=== PATIENT | male | born 1975 | race Caucasian/White ===

== ENCOUNTER 2020-03-05 17:02 | Observation (INO) | payer BC, SELFPAY ==
[2020-03-05] VITALS (9 sets, daily range): BP systolic 99–153; BP diastolic 60–87; PULSE 60–89; RESP 16–18; TEMP 36.4–36.8; O2SAT 94–98; BMI 21.7; BMI 21.4
--- NOTE | 2020-03-05 17:07 | HMH.EDGENADL ---
ED Disposition Condition on Discharge: Good - Critical Care Critical Care Time: No <Socrates Keita - Last Filed: 03/05/20 20:03> <Farzad Hagan - Last Filed: 03/05/20 20:56> Clinical Impression: JERRY (acute kidney injury), Elevated troponin, Transaminitis Drug overdose Qualifiers: Encounter type: initial encounter Injury intent: accidental or unintentional Qualified Code(s): T50.901A - Poisoning by unspecified drugs, medicaments and biological substances, accidental (unintentional), initial encounter Disposition: Home, Self-Care Prescriptions: Naloxone HCl [Narcan] 4 mg NS ONCE 1 Days #1 spray Transmission Status: Received by [id number] Referrals: PCP,Sariah [Primary Care Provider] - Attestation: On 03/05/20, the high probability of a clinically significant, sudden or life threatening deterioration of the following system(s) required my full and direct attention, intervention and personal management. The time I documented below is in addition to time spent performing reported procedures but includes the following listed in this critical care notation. Medical Decision Making - Medical Records Medical records reviewed: Yes: I reviewed the patient's medical records. MR Comment: 45-year-old male presents emergency department after being found down by EMS after possible opioid overdose. He arrives to the ED hemodynamically stable, with reassuring vital signs, and looks well on exam. He is not irritable on arrival, has no pain complaints. Respiratory rate is normal and he is answering all questions appropriately, alert and oriented. 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 I do not feel that this needs further evaluation at this time. He has only needed 1 dose of Narcan. Will work-up, assess for needed repeat doses of Narcan and reassess the patient. On reassessment, patient remians stable. Denies chest pain, LBBB on ECG, no prior ECG or workup here to compare this to, no past medical records. Troponin elevated, no chest pain. Creatning and LFT's also elevated. Likely due to overdose and hypoxia. CK checked, no concern for rhabdo at this time. Given that patient is pain free and wants to go home, will continue fluids both IV and PO and reassess with repeat CMP, troponin and ECG and reassess. - Prabhu Inquiry Pt receiving controlled substance: No - Lab Data Result diagrams: 03/05/20 17:05 03/05/20 17:05 <Socrates Keita - Last Filed: 03/05/20 20:03> - Medical Records MR Comment: Patient handed off by Dr. Keita. Patient troponin second was elevated, repeat EKG still demonstrated left bundle branch block, scarbosa criteria negative. 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 - Lab Data Result diagrams: 03/05/20 17:05 03/05/20 20:04 <Farzad Hagan - Last Filed: 03/05/20 20:56> Vital Signs: 03/05/20 17:03 03/05/20 18:11 03/05/20 19:01 Temperature 97.9 F Temperature Source Oral Pulse Rate [Right Radial] 89 65 65 Respiratory Rate 17 Blood Pressure [Right Arm] 112/65 101/60 L 99/62 L Blood Pressure Mean [Right Arm] 80 73 74 Blood Pressure Source [Right Arm] Automatic Cuff Automatic Cuff Blood Pressure Position [Right Arm] Sitting Sitting 02 Sat by Pulse Oximetry 95 94 L 95 Oxygen Delivery Method Room Air Room Air Room Air 03/05/20 20:34 Temperature Temperature Source Pulse Rate [Right Radial] 66 Respiratory Rate 18 Blood Pressure [Right Arm] 116/70 Blood Pressure Mean [Right Arm] 85 Blood Pressure Source [Right Arm] Blood Pressure Position [Right Arm] 02 Sat by Pulse Oximetry 97 Oxygen Delivery Method - Lab Data Lab Results 03/05/20 17:05: WBC 18.1 H, RBC 4.27 L, Hgb 13.6 L, Hct 39.7 L, MCV 93.0, MCH 31.7 H, MCHC 34.1, RDW 13.9, Plt Count 260, MPV 7.2 L, Neut % (Auto) 91.3 H, Lymph % (Auto) 4.1 L, [place] % (A
--- NOTE | 2020-03-05 17:09 | ECG_ITS ---
APPROVED REPORT Exam: Resting ECG HR:68 bpm ECG Measurements Heart Rate 68 AXES IA 188 P 53 QRSd 166 QRS 30 QT 436 T 99 QTc 463 <Conclusion> Normal sinus rhythm Left bundle branch block Abnormal ECG Electronically signed by : Basil Travis, 03/06/2020 19:51:02
--- NOTE | 2020-03-05 17:18 | PC.NURSE ---
labs drawn from DANIEL. IVFs initiated wide open. Waiting for pt to give urine specimen.
[2020-03-05 17:35] LABS: Basophils % 0.1 % (0.1-2.0); Eosinophils % 0.2 % (0.1-12.0); Hematocrit 39.7 % (42.0-52.0); Hemoglobin 13.6 g/dL (14.1-18.0); Lymphocytes # 0.8 K/mm3 (0.7-4.5); Lymphocytes % 4.1 % (10-50); Mean Corpuscular HGB Conc 34.1 g/dL (31.8-35.4); Mean Corpuscular Hemoglobin 31.7 pg (27.0-31.2); Mean Platelet Volume 7.2 fl (7.4-10.4); Monocytes # 0.8 K/mm3 (0.1-1.0); Monocytes % 4.3 % (1.7-9.3); Neutrophils # 16.6 K/mm3 (1.8-7.8); Neutrophils % 91.3 % (37.0-80.0); Platelet Count 260 K/mm3 (142-424); Red Blood Count 4.27 M/mm3 (4.60-6.20); Red Cell Distribution Width 13.9 % (11.5-17.5); White Blood Count 18.1 K/mm3 (4.8-10.8)
[2020-03-05 17:37] LABS: MANUAL DIFFERENTIAL MANUAL DIFFERENTIAL (MANUAL DIFF)
[2020-03-05 17:41] LABS: Alanine Aminotransferase 130 U/L (12-78); Albumin Level 4.6 g/dl (3.5-5.0); Albumin/Globulin Ratio 1.4 (1.1-1.8); Alkaline Phosphatase 107 U/L (38-126); Anion Gap 17.9 mEq/L (5-15); Aspartate Amino Transferase 217 U/L (17-59); Bilirubin,Total 0.4 mg/dl (0.2-1.3); Blood Urea Nitrogen 17 mg/dl (9-20); Calcium 9.1 mg/dl (8.4-10.2); Carbon Dioxide 29 mmol/L (22.0-30.0); Chloride 97 mmol/L (98-107); Creatinine Clearance Estimated 48 mL/min (50-200); Estimated Glomerular Filt Rate 36 ml/min (>60); GFR (African American) 44 ML/MIN (>60); Globulin 3.3 g/dL (1.3-3.2); Glucose 159 mg/dl (74-100); Potassium 3.9 mmoL/L (3.5-5.1); Sodium 140 mmol/L (136-145); Total Protein,Serum 7.9 g/dl (6.3-8.2)
[2020-03-05 17:44] LABS: Acetaminophen < 10 ug/ml (10-30); Ethyl Alcohol < 10 mg/dl (0-10); Salicylate < 1.0 mg/dL (2.0-20.0)
[2020-03-05 17:47] LABS: Eosinophils % 1 % (0-3); Lymphocytes % 10 % (10-50); Monocytes % 2 % (2-9); Neutrophils % 81 % (42-76); Platelet Estimate Normal; RBC Morphology Normal; Total Cells Counted 100
[2020-03-05 17:52] LABS: Troponin I 0.36 ng/ml (0.00-0.034)
[2020-03-05 18:10] LABS: Creatine Kinase 148 U/L (55-170)
--- NOTE | 2020-03-05 20:00 | ECG_ITS ---
APPROVED REPORT Exam: Resting ECG HR:79 bpm ECG Measurements Heart Rate 79 AXES OK 174 P 38 QRSd 168 QRS 6 QT 432 T 119 QTc 495 <Conclusion> Normal sinus rhythm Possible Left atrial enlargement Left bundle branch block Abnormal ECG Electronically signed by : Basil Travis, 03/06/2020 19:51:49
[2020-03-05 20:22] LABS: Alanine Aminotransferase 163 U/L (12-78); Albumin Level 4.1 g/dl (3.5-5.0); Albumin/Globulin Ratio 1.4 (1.1-1.8); Alkaline Phosphatase 111 U/L (38-126); Anion Gap 14.7 mEq/L (5-15); Aspartate Amino Transferase 207 U/L (17-59); Bilirubin,Total 0.4 mg/dl (0.2-1.3); Blood Urea Nitrogen 17 mg/dl (9-20); Calcium 8.5 mg/dl (8.4-10.2); Carbon Dioxide 28 mmol/L (22.0-30.0); Chloride 98 mmol/L (98-107); Creatinine Clearance Estimated 60 mL/min (50-200); Estimated Glomerular Filt Rate 47 ml/min (>60); GFR (African American) 57 ML/MIN (>60); Glucose 105 mg/dl (74-100); Potassium 3.7 mmoL/L (3.5-5.1); Sodium 137 mmol/L (136-145); Total Protein,Serum 7.1 g/dl (6.3-8.2)
[2020-03-05 20:25] LABS: Amphetamine/Metha Screen,Urine Negative ng/ml (<1000); Benzodiazepines Screen,Urine Negative ng/ml (<200)
[2020-03-05 20:26] LABS: Barbiturates Screen,Urine Negative ng/ml (<200); Cannabinoid Screen,Urine Positive ng/ml (<50)
[2020-03-05 20:27] LABS: Cocaine Screen,Urine Negative ng/ml (<300)
[2020-03-05 20:28] LABS: Methadone Screen,Urine Negative ng/ml (<300); Opiate Screen,Urine Positive ng/ml (<300)
[2020-03-05 20:29] LABS: Phencyclidine Screen,Urine Negative ng/ml (<25)
[2020-03-05 20:37] LABS: Troponin I 1.88 ng/ml (0.00-0.034)
--- NOTE | 2020-03-05 20:42 | PC.NURSE ---
speaking with Dr. Pedraza
--- NOTE | 2020-03-05 20:45 | PC.NURSE ---
speaking with Dr. Renee
[2020-03-05 21:20] LABS: Coronavirus 19 IgG Antibody Negative (Negative); Coronavirus 19 IgM Antibody Negative (Negative)
--- NOTE | 2020-03-05 21:49 | PC.NURSE ---
PT ARRIVED TO THE FLOOR VIA W/C FROM ED WITH STAFF AT [id number]
--- NOTE | 2020-03-05 22:15 | PC.NURSE ---
Loxenox injection and fluid bolus to be given tonight.
[2020-03-05 23:52] LABS: Troponin I 2.86 ng/ml (0.00-0.034)
[2020-03-06] VITALS: BP 121/66; PULSE 60; PULSE 73; RESP 16; TEMP 37.2; O2SAT 96
[2020-03-06 04:00] VITALS: BP 136/77; PULSE 60; PULSE 65; RESP 16; TEMP 36.7; O2SAT 99
--- NOTE | 2020-03-06 04:06 | PC.NURSE ---
Alert and oriented x4. Pt rested well this shift with eyes closed. No c/o chest pain. Reports pain to right wrist. Rates pain 8/10 on pain scale. Administered Tylenol per mar x1 thus far. Upon reassessment pt noted resting with eyes closed with no further complaints. PERRLA. Right hand associate [employer] noted with decreased strength due to pt being unable to full extend his wrist. States his wrist has not voluntarily extended since he was found unresponsive in his car yesterday with his wrist under his body. Pt states he is unaware of how long he was unconscious before found by . Pt is able to use/extend digits on right hand. 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 Cap refill < 3 seconds bilateral hands. Tolerates ra well, no c/o soa. Bilateral breath sounds noted clear t/o upon auscultation. Denies cough. Denies N/V/D. Active bowel sounds noted in all 4 quads upon auscultation. Adequate urine output noted. Independently amb to and from bathroom, tolerates well. No edema noted. BBB noted on teletypesetter monitor. remained at bedside t/o shift. NPO since 0000. VSS. Call light within reach. Remains safe with seizure precautions in place. Will continue to monitor.
[2020-03-06 06:00] VITALS: BMI 21.4
[2020-03-06 07:30] LABS: Basophils % 0.3 % (0.1-2.0); Eosinophils # 0.1 K/mm3 (0.0-0.4); Eosinophils % 1.3 % (0.1-12.0); Hematocrit 31.4 % (42.0-52.0); Lymphocytes # 2.2 K/mm3 (0.7-4.5); Lymphocytes % 23.1 % (10-50); Mean Corpuscular HGB Conc 34.6 g/dL (31.8-35.4); Mean Corpuscular Hemoglobin 31.3 pg (27.0-31.2); Mean Corpuscular Volume 90.3 fl (80-94); Mean Platelet Volume 7.7 fl (7.4-10.4); Monocytes # 0.7 K/mm3 (0.1-1.0); Monocytes % 7.7 % (1.7-9.3); Neutrophils # 6.5 K/mm3 (1.8-7.8); Neutrophils % 67.7 % (37.0-80.0); Platelet Count 179 K/mm3 (142-424); Red Blood Count 3.47 M/mm3 (4.60-6.20); Red Cell Distribution Width 14.1 % (11.5-17.5); White Blood Count 9.6 K/mm3 (4.8-10.8)
[2020-03-06 07:34] LABS: Anion Gap 9.5 mEq/L (5-15); Blood Urea Nitrogen 16 mg/dl (9-20); Calcium 8.3 mg/dl (8.4-10.2); Carbon Dioxide 31 mmol/L (22.0-30.0); Chloride 97 mmol/L (98-107); Chol/HDL Ratio 5.5 (1-3.5); Cholesterol 149 mg/dl (140-200); Creatinine Clearance Estimated 73 mL/min (50-200); Estimated Glomerular Filt Rate 60 ml/min (>60); GFR (African American) 72 ML/MIN (>60); Glucose 96 mg/dl (74-100); HDL Cholesterol 27 mg/dl (40-60); Magnesium 2.1 mg/dl (1.6-2.3); Potassium 3.5 mmoL/L (3.5-5.1); Sodium 134 mmol/L (136-145); Triglycerides 103 mg/dl (30-150); VLDL Cholesterol 21 mg/dL (0-40)
[2020-03-06 07:41] LABS: Hemoglobin 10.9 g/dL (14.1-18.0)
[2020-03-06 07:44] LABS: Direct LDL Cholesterol 95.06 mg/dL (100-129)
[2020-03-06 08:00] VITALS: BP 156/83; PULSE 60; PULSE 67; RESP 19; TEMP 36.7; O2SAT 99
--- NOTE | 2020-03-06 09:24 | HMH.HPDC ---
General - General Admission date:: 03/05/20 Discharge date: 03/06/20 *Admission Date: 03/05/20 *Chief complaint: found down by *History of present illness: 45 year old male brought to [facility] ER after being found unresponsive and barely breathing in his car at home by his . She called 911 and a dose of Narcan was given once EMS arrived. Patient became more responsive and respiratory rate increased. He was found to have difficulty moving his left hand. In the ER patient reported taking a percocet 30 and stated it must have been laced with something. Patient states he has been under a lot of stress lately after the unexpected of both his parents in the last few months. He admits to misusing narcotics. [facility] History Medical History: Reports:: Hypertension, Seizures, Valvular Heart Disease (s/p aortic valve replacement) Denies:: Cancer, Diabetes Mellitus Type 1, Diabetes Mellitus Type 2, Internal Pacemaker, MRSA *Have you ever received a pneumonia vaccine?: Yes *Have you received a flu vaccine this season?: No Other Surgeries: Yes: Cardiac Surgery. 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 *Occupational Status:: employed Housing: house Household Members: spouse, children *Travel in the last 8 weeks: None Family Hx:: Coronary Artery Disease, Hypertension, Alcoholism Review of Systems - Constitutional Denies fever(s) - Eyes Denies change in vision - ENT Denies difficulty swallowing - *Cardiovascular Denies chest pain - *Respiratory Denies cough - *Gastrointestinal Denies abdominal pain - *Genitourinary Denies difficulty urinating - *Musculoskeletal Denies muscle cramps - Integumentary/Breasts Denies rash - *Neurologic Reports tingling (and decreased use of right hand), Denies dizziness - Psychiatric Denies thoughts of hurting/killing others Exam Vital signs and Labs for Last 24 Hours: Temp Pulse Resp BP Pulse Ox 98.0 F 67 19 156/83 H 99 03/06/20 08:00 03/06/20 08:00 03/06/20 08:00 03/06/20 08:00 03/06/20 08:00 Laboratory Results - last 24 hr 08/29/20 17:05: WBC 18.1 H, RBC 4.27 L, Hgb 13.6 L, Hct 39.7 L, MCV 93.0, MCH 31.7 H, MCHC 34.1, RDW 13.9, Plt Count 260, MPV 7.2 L, Neut % (Auto) 91.3 H, Lymph % (Auto) 4.1 L, [place] % (Auto) 4.3, Eos % (Auto) 0.2, Baso % (Auto) 0.1, Neut # (Auto) 16.6 H, Lymph # (Auto) 0.8, [place] # (Auto) 0.8, Eos # (Auto) 0.0, Baso # (Auto) 0.0, Total Counted 100, Neutrophils % (Manual) 81 H, Band Neutrophils % 5.0, Lymphocytes % (Manual) 10, Monocytes % (Manual) 2, Eosinophils % (Manual) 1, Metamyelocytes % 1.0, Platelet Estimate Normal, RBC Morphology Normal 03/05/20 17:05: Sodium 140, Potassium 3.9, Chloride 97 L, Carbon Dioxide 29, Anion Gap 17.9 H, BUN 17, Creatinine 2.00 H, Estimated Creat Clear 48, Estimated GFR 36 L, Est GFR ( Amer) 44 L, Glucose 159 H, Calcium 9.1, Total Bilirubin 0.4, AST 217 H, ALT 130 H, Alkaline Phosphatase 107, Troponin I 0.36 H, Total Protein 7.9, Albumin 4.6, Globulin 3.3 H, Albumin/Globulin Ratio 1.4, Salicylates < 1.0 L, Acetaminophen < 10 L 03/05/20 17:05: Plasma/Serum Alcohol < 10 03/05/20 17:05: Total Creatine Kinase 148 03/05/20 17:05: SARS-CoV-2 IgG Ab (Rapid) Negative, SARS-CoV-2 IgM Ab (Rapid) Negative 03/05/20 20:04: Urine Opiates Screen Positive H, Urine Methadone Screen Negative, Ur Barbituates Screen Negative, Ur Phencyclidine Scrn Negative, Ur Amphetamines Screen Negative, U Benzodiazepines Scrn Negative, Urine Cocaine Screen Negative, U Marijuana (THC) Screen Positive H 03/05/20 20:04: Sodium 137, Potassium 3.7, Chloride 98, Carbon Dioxide 28, Anion Gap 14.7, BUN 17, Creatinine 1.60 H, Estimated Creat Clear 60, Estimated GFR 47 L, Est GFR ( Amer) 57 L D, Glu
--- NOTE | 2020-03-06 11:26 | HMH.PHAINT ---
DISCHARGE COUNSELING COMPLETED ON PATIENT. ONLY NEW PRESCRIPTION IS BABY ASPIRIN WHICH CAN BE PICKED UP AT ANY PHARMACY. PATIENT IS TO CONTINUE ALL OTHER HOME MEDICATIONS. PATIENT VERBALIZED UNDERSTANDING AND HAD NO QUESTIONS AT THIS TIME. -RAFAL DEE, JUDYD
--- NOTE | 2020-03-06 17:17 | PC.NURSE ---
PER DR. GRAVES THIS RN WAS TO PHONE PT ENVIRONMENT ARTIST AND PROVIDE INSTRUCTIONS FOR RADIAL PALSY EXERCISES. THIS RN SPOKE WITH LORENA WHOM PROVIDED THIS RN INSTRUCTIONS TO PRINT PROPER EXERCISES FOR PATIENT'S RIGHT WRIST DROP. THIS RN EDUCATED PATIENT ON EACH EXERCISE, PATIENT AND SPOUSE VERBALIZED AN UNDERSTANDING. THIS RN PROVIDED D/C INSTRUCTIONS ON VT AND DRUG OVERDOSE, ALSO INSTUCTIONS TO FOLLOW UP WITH PATIENT'S SCOUT PROFESSIONAL SPORTS, PATIENT AND SPOUSE VERBALIZED AN UNDERSTANDING. THIS RN PROVIDED A LIST OF SUBSTANCE ABUSE CLINICS TO PATIENT AND SPOUSE, WHICH WAS PROVIDED BY [facility]. NO OTHER CONCERNS AT THIS TIME.
== END 2020-03-06 11:30 | disposition home or self-care (01) ==
LOC: ER 20:49 → 2ND 22:21
PROVIDERS: Emergency Medicine; Admitting Provider Family Medicine; Emergency Provider Emergency Medicine; Visit Provider Family Medicine
DX: I21.4 Non-ST elevation (NSTEMI) myocardial infarction (principal); I10 Essential (primary) hypertension; G56.32 Lesion of radial nerve, left upper limb; F11.10 Opioid abuse, uncomplicated
CPT/HCPCS: 36415; 80048; 80053; 80061; 80305; 80329; 82550; 83735; 84484; 85007; 85025; 86328; 93005; 96374; 99285; G0378; J2405

== ENCOUNTER 2020-04-19 09:00 | Outpatient (RCR) | payer BC, SELFPAY ==
--- NOTE | 2020-03-21 08:54 | HMH.OTOPEV ---
OT Inpatient Evaluation Rehab OT Outpatient Eval Start: 03/21/20 08:40 Freq: Status: Active Protocol: Document 03/21/20 08:40 RMALEXIS (Rec: 03/21/20 08:53 [id number] Electronically Signed By Abida Vieyra OT 03/21/20 08:40 Outpatient Therapy Subjective History Subjective History Pt is a 45 year old male who reports to therapy for initial evaluation to right hand/ wrist. Pt reports he had a stroke ~2 weeks ago which has affected his right wrist/hand. However, therapist reviewed ER documentation which revealed patient overdosed in his car and his right arm was pinned underneath him for a long period of time. ER physician reports he has radial nerve palsy. Pt does present with all symptoms of this diagnosis. Pt is able to flex his wrist, but unable to extend or grasp. 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 Elbow is WNL with range of motion and strength. Pt will continue to be seen in order to address right wrist deficits. 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 Strength,Decreased Coordination Symptom Type Numbness,Tingling Symptoms Relieved By Nothing Symptoms Aggravated By Physical Activity Prior Functional Limitations None Current Functional Limitations Reaching,Lifting,Housework, Dressing Symptom Description Constant but Variable Level of pain today (0-10) 2 Pain scale - at its best (0-10) 0 Pain scale - at its worst (0-10) 5 Wrist/Hand Eval Wrist Range of Motion Right Wrist Extension Active Range of Motion ( 0 degrees degrees) Wrist Extension Passive Range of Motion 70 degrees (degrees) Wrist Flexion Active Range of Motion ( 70 degrees degrees) Wrist Radial Deviation Active Range of 0 degrees Motion (degrees) Wrist Ulnar Deviation Active Range of 0 degrees Motion (degrees) Wrist Manual Muscle Testing Right Wrist Extension Strength Grade 1 Trace Wrist Flexion Strength Grade 2+ Poor+ Wrist Radial Deviation S
== END 2020-04-19 09:05 | disposition home or self-care (01) ==
LOC: OT 09:00
PROVIDERS: PCP Family Medicine; Visit Provider Family Medicine
DX: R20.0 Anesthesia of skin (principal)
CPT/HCPCS: 97014; 97110; 97140; 97165; G0283

== ENCOUNTER → 2022-09-24 15:06 | Outpatient (CLI) | payer BC, SELFPAY ==
[2022-09-24 16:34] LABS: Chloride 100 mmol/L (98-107); Sodium 138 mmol/L (136-145)
[2022-09-24 16:37] LABS: Blood Urea Nitrogen 14 mg/dl (9-20); Estimated Glomerular Filt Rate 72 ml/min (>60); GFR (African American) 87 ML/MIN (>60)
[2022-09-24 16:38] LABS: Calcium 8.9 mg/dl (8.4-10.2); Carbon Dioxide 30 mmol/L (22.0-30.0); Glucose 73 mg/dl (74-100)
== END ==
PROVIDERS: PCP Family Medicine; Visit Provider Nurse Practitioner Primary Care
DX: I50.42 Chronic combined systolic (congestive) and diastolic (congestive) heart failure (principal)
CPT/HCPCS: 36415; 80048

== ENCOUNTER 2023-11-12 16:33 | Emergency (ER) | payer OTHER, SELFPAY ==
[2023-11-12 16:35] VITALS: BP 159/87; PULSE 63; RESP 20; TEMP 36.7; O2SAT 99; BMI 19.0
[2023-11-12] MEDS: ACETAMINOPHEN 1,000MG/100ML VIAL 1000 MG IV (17:04)
[2023-11-12] MEDS: KETOROLAC 30MG/ML VIAL 15 MG IV (17:04)
[2023-11-12 17:18] LABS: Basophils # 0.1 K/mm3 (0-0.2); Basophils % 0.5 % (0.1-2.0); Eosinophils # 0.5 K/mm3 (0.0-0.4); Eosinophils % 4.6 % (0.1-12.0); Hematocrit 31.1 % (42.0-52.0); Lymphocytes # 2.7 K/mm3 (0.7-4.5); Lymphocytes % 24.1 % (10-50); Mean Corpuscular HGB Conc 32.2 g/dL (31.8-35.4); Mean Corpuscular Hemoglobin 31.3 pg (27.0-31.2); Mean Corpuscular Volume 97.2 fl (80-94); Mean Platelet Volume 8.8 fl (7.4-10.4); Monocytes # 0.6 K/mm3 (0.1-1.0); Monocytes % 5.1 % (1.7-9.3); Neutrophils # 7.4 K/mm3 (1.8-7.8); Neutrophils % 65.7 % (37.0-80.0); Platelet Count 183 K/mm3 (142-424); Red Cell Distribution Width 14.6 % (11.5-17.5); White Blood Count 11.2 K/mm3 (4.8-10.8)
--- NOTE | 2023-11-12 17:28 | ED_ITS ---
Discharge Plan Disposition Patient Disposition: Home, Self-Care Chief Complaint: Abdominal Pain Prescriptions Prescriptions: No Action ibuprofen 600 mg tablet 600 mg PO Q8H PRN (Reason: pain) Qty: 20 0RF tizanidine 4 mg capsule 4 mg PO Q8H PRN (Reason: muscle spasticity) Qty: 30 1RF Entresto 97-103 mg tablet 1 tab PO BID carvedilol [Coreg] 12.5 mg tablet 12.5 mg PO BID Qty: 180 3RF Rx Instructions: must administer with a meal/food fluticasone propionate [Flonase Allergy Relief] 50 mcg/actuation spray,suspension 1 spray intranasal BID Qty: 16 4RF Rx Instructions: administer into each nostril methylprednisolone [Medrol (Javon)] 4 mg tablets,dose pack See Rx Instructions PO PER PKG DIR Qty: 21 0RF Rx Instructions: PO PER PKG DIR azithromycin 500 mg tablet 500 mg PO DAILY 3 Days Qty: 3 0RF alprazolam 1 mg tablet 1 mg PO DAILY Qty: 30 5RF Rx Instructions: use for panic attacks eslicarbazepine 800 mg tablet 800 mg PO DAILY Patient Comments: TAKE 1 & 1 2 (ONE & ONE HALF) TABLETS BY MOUTH ONCE DAILY aspirin 81 MG tablet,delayed release (DR/EC) 81 mg PO DAILY 30 Days 0RF Referrals Follow up/Referrals: Francisco Damon MD [Primary Care Provider] - See instructions Apolinar Brown MD [Staff Physician] - See instructions Activity Restrictions/Add. Instructions Additional Instructions/Restrictions: Call your family doctor to establish care for this visit to the emergency department and schedule follow-up within 48 hours to ensure improvement. If you have any worsening of your condition or any other concerning signs or symptoms, return to the emergency department or your primary care doctor for further evaluation. Clinical Impressions Clinical Impression: Direct inguinal hernia of right side Instructions Patient Instructions: DI for Acute Abdominal Pain Discharge ED Provider: Bora Vogel General Adult HPI General Chief complaint: Abdominal Pain Stated complaint: abdomin pain Time Seen by Provider: 11/12/23 16:36 Mode of Arrival: Ambulatory Source of Information: Patient and Spouse Limitations: No Limitations Description of Symptoms (Recalled from ER Triage Doc. by RN): pt began having rlq pain after he noticed his hernia in the area had disappeared today History of Present Illness HPI narrative: Please note that above description of symptoms, in this electronic medical record under categorization of recalled from ER triage doctor by RN are reflective of an initial nursing assessment, however, is not reflective of my full history and physical exam that was personally taken and clarified. Consequentially, this preceding description of symptoms, which may include the patient's categorized chief complaint in the EMR, do not reflect my personal clinical impression, and the ultimate description of history of present illness and patient stated complaints should be deferred to this section of the note. Unless stated otherwise or congruent with this section of the note, additional signs, symptoms, or incongruence should be interpreted as inaccurate with my clinical impression. Related Data Home Medications Medication Instructions Recorded Confirmed eslicarbazepine 800 mg tablet 800 mg PO DAILY seizures 03/05/20 09/27/23 sacubitril 97 mg-valsartan 103 mg 1 tab PO BID 07/24/22 09/27/23 tablet (Entresto) Previous Rx's Medication Instructions Recorded aspirin 81 mg tablet,delayed 81 mg PO DAILY 30 days 03/06/20 release ibuprofen 600 mg tablet 600 mg PO Q8H PRN pain #20 tabs 05/29/22 carvedilol 12.5 mg tablet (Coreg) 12.5 mg PO BID #180 tabs 07/24/22 fluticasone propionate 50 1 spray intranasal BID #16 grams 07/24/22 mcg/actuation nasal spray,suspension (Flonase Allergy Relief) tizanidine 4 mg capsule 4 mg PO Q8H PRN muscle spasticity 03/25/23 #30 caps alprazolam 1 mg tablet 1 mg PO DAILY #30 tabs 09/27/23 azithromycin 500 mg tablet 500 mg PO DAILY 3 days #3 tabs 09/27/23 methylprednisolone 4 mg tablets in See Rx Instructions PO PER PKG DIR 09/27/23 a dose pack (Medrol (Javon)) #21 tabs Allergies Allergy/AdvReac Type Severity Reaction Status Date / Time Penicillins Allergy Severe SWELLING Verified 09/27/23 10:14 [facility] Disclaimer: The information contained in this section may have been updated after the patient was seen, as this information can be updated by other users. 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 caffeine: Yes ROS Obtained: Yes All systems reviewed & no additional complaints except as documented Physical Exam General General appearance: alert and in no apparent distress Head Head exam: atraumatic and normocephalic Eye Eye exam: Present normal appearance, PERRL and EOMI ENT ENT exam: Present mucous membranes moist Neck Neck exam: Present normal inspection, full ROM and trachea midline Respiratory Respiratory exam: Present normal lung sounds bilaterally; Absent respiratory distress, wheezes, stridor, accessory muscle use or prolonged expiratory phase Cardiovascular Cardiovascular exam: Present regular rate and normal rhythm Abdominal Exam Abdominal exam: Present soft and hernia (Right-sided indirect inguinal hernia soft, reducible); Absent distention, tenderness, guarding, rebound or rigidity Extremities Exam Extremities exam: Absent edema Neurological Exam Neurological exam: Present alert, oriented X3, CN II-XII intact and normal gait; Absent motor sensory deficit Skin Skin exam: Present warm and dry; Absent diaphoresis or erythema Medical Decision Making Medical Records Medical records reviewed: Yes I reviewed the patient's medical records. Prabhu Inquiry Pt receiving controlled substance: No Prabhu was queried for this patient: No Vital Signs: 11/12/23 16:35 Temperature 98.0 F Temperature Source Oral Pulse Rate [Right Radial] 63 Respiratory Rate 20 Blood Pressure [Right Arm] 159/87 H Blood Pressure Mean [Right Arm] 111 02 Sat by Pulse Oximetry 99 Oxygen Delivery Method Room Air Lab Data Lab Results 11/12/23 17:08: WBC 11.2 H, RBC 3.20 L, Hgb 10.0 L, Hct 31.1 L, MCV 97.2 H, MCH 31.3 H, MCHC 32.2, RDW 14.6, Plt Count 183, MPV 8.8, Neut % (Auto) 65.7, Lymph % (Auto) 24.1, [place] % (Auto) 5.1, Eos % (Auto) 4.6, Baso % (Auto) 0.5, Neut # (Auto) 7.4, Lymph # (Auto) 2.7, [place] # (Auto) 0.6, Eos # (Auto) 0.5 H, Baso # (Auto) 0.1, Sodium 138, Potassium 3.3 L, Chloride 99, Carbon Dioxide 31 H, Anion Gap 11.3, BUN 14, Creatinine 1.40 H, Estimated Creat Clear 58, Estimated GFR 54 L, Est GFR ( Amer) 65, Glucose 95, Lactate 0.5 L, Calcium 9.2, Total Bilirubin 0.3, AST 19, ALT 12, Alkaline Phosphatase 61, Total Protein 6.8, Albumin 4.1, Globulin 2.7, Albumin/Globulin Ratio 1.5 11/12/23 17:08 11/12/23 17:08 Orders (Tests/Meds): ED MEDICATIONS Discontinued Medications Generic Name Dose Route Start Last Admin Trade Name Freq PRN Reason Stop Dose Admin Acetaminophen 1,000 mg 11/12/23 16:46 11/12/23 17:04 Acetaminophen 1,000mg/100ml Vial IV 11/12/23 16:47 1,000 mg ONCE ONE Administration Ketorolac Tromethamine 15 mg 11/12/23 16:46 11/12/23 17:04 Ketorolac 30mg/Ml Vial IV 11/12/23 16:47 15 mg ONCE ONE Administration Potassium Chloride 60 meq 11/12/23 17:41 Potassium Chloride 20meq Tab PO 11/12/23 17:42 ONCE ONE ORDERS Category Date Time Status CBC w/Auto Diff [Complete Blood Count Auto Diff] Stat Lab 11/12/23 17:08 Completed CMP [Comprehensive Metabolic Panel] Stat Lab 11/12/23 17:08 Completed Lactic Acid Stat Lab 11/12/23 17:08 Completed Medical Decision Narrative: 48-year-old male history of left-sided inguinal hernia status postrepair, thoracic aortic aneurysm and bicuspid aortic valve status post aortic repair and porcine valve placement, hypertension presenting with right gluteal hernia. States that it started herniating 2 days prior to this visit. Reducible. Patient states that he got worried because it popped out, was the size of a golf ball, and then popped back in. It was tender when it popped back in, so patient and were concerned that patient may have ruptured his hernia. Patient has not taken any meds for this. Denies fevers or chills, nausea or vomiting, patient is still passing gas, has not had a bowel movement since yesterday, 11/10, but that was normal for him. History was obtained via conversation with patient and . On arrival, patient hemodynamically stable, alert, oriented x4, appropriate, GCS 15, moving all extremities spontaneously, pupils equal and reactive to light. Full physical exam performed and significant for very well-appearing patient no acute distress. Abdomen is soft, nondistended, tender right lower abdomen just superior to inguinal ligament. He does have small, soft hernia. No overlying skin changes. Easily reducible. He has about a 2 cm defect in the abdominal wall. Differential includes reducible hernia, incarcerated or strangulated hernia, among others. Patient was given Toradol and acetaminophen for symptomatic management and correction of underlying abnormalities. Workup independently interpreted and significant for nonactionable CBC or chemistry. Lactic acid negative. CT of the abdomen and pelvis was considered, but given reducible hernia, stable vital signs, very well-appearing patient with nonactionable physical exam, and normal hematologic workup, not performed at this time. Deemed unnecessary. On reevaluation, patient states that he is having very minimal pain. Hernia remains reduced. Reassurance given and methods for reduction were discussed with patient. He voiced his understanding. Close return precautions given. Because patient at baseline without signs or symptoms of clinical decompensation, deemed appropriate for discharge. Results were relayed to patient who voiced understanding and were agreeable to outpatient management and follow up. I discussed my clinical impression with patient and answered all questions. At this time, the evidence for any other entities in the differential is insufficient to warrant any further testing or ED observation. This was explained as well. Advisory was given that persistent or worsening symptoms require further evaluation. I confirmed the understanding of this discussion. Critical Care Critical Care Time Critical Care Time: No
[2023-11-12 17:31] VITALS: BP 107/57; PULSE 54; O2SAT 97
[2023-11-12 17:32] LABS: Lactic Acid 0.5 mmol/L (0.7-2.1)
[2023-11-12 17:33] LABS: Alanine Aminotransferase 12 U/L (12-78); Albumin Level 4.1 g/dl (3.5-5.0); Albumin/Globulin Ratio 1.5 (1.1-1.8); Alkaline Phosphatase 61 U/L (38-126); Anion Gap 11.3 mEq/L (5-15); Aspartate Amino Transferase 19 U/L (17-59); Bilirubin,Total 0.3 mg/dl (0.2-1.3); Blood Urea Nitrogen 14 mg/dl (9-20); Calcium 9.2 mg/dl (8.4-10.2); Carbon Dioxide 31 mmol/L (22.0-30.0); Chloride 99 mmol/L (98-107); Creatinine Clearance Estimated 58 mL/min (50-200); Estimated Glomerular Filt Rate 54 ml/min (>60); GFR (African American) 65 ML/MIN (>60); Globulin 2.7 g/dL (1.3-3.2); Glucose 95 mg/dl (74-100); Potassium 3.3 mmoL/L (3.5-5.1); Sodium 138 mmol/L (136-145); Total Protein,Serum 6.8 g/dl (6.3-8.2)
[2023-11-12] MEDS: POTASSIUM CHLORIDE 20MEQ TAB 60 MEQ PO (17:45)
[2023-11-12 18:40] VITALS: BP 145/70; PULSE 70; RESP 20; TEMP 36.7; O2SAT 98
== END 2023-11-12 18:41 | disposition home or self-care (01) ==
PROVIDERS: Emergency Provider Emergency Medicine; PCP Family Medicine
DX: R10.31 Right lower quadrant pain (principal); K40.90 Unilateral inguinal hernia, without obstruction or gangrene, not specified as recurrent; E87.6 Hypokalemia
CPT/HCPCS: 80053; 83605; 85025; 96374; 96375; 99284; J0131

== ENCOUNTER 2024-09-07 14:41 | Emergency (ER) | payer OTHER, SELFPAY ==
[2024-09-07 14:42] VITALS: BP 197/95; PULSE 63; RESP 18; TEMP 36.7; O2SAT 97; BMI 20.3
[2024-09-07 15:00] VITALS: BP 199/101
--- NOTE | 2024-09-07 15:01 | ED_ITS ---
Discharge Plan Disposition Patient Disposition: Home, Self-Care Condition: Good Prescriptions Prescriptions: No Action valsartan 160 mg tablet 160 mg PO Patient Comments: TAKE 1 TABLET BY MOUTH TWICE DAILY amlodipine 5 mg tablet 5 mg PO Patient Comments: TAKE 1 TABLET BY MOUTH ONCE DAILY spironolactone 25 mg tablet 25 mg PO Patient Comments: TAKE 1/2 (ONE-HALF) TABLET BY MOUTH ONCE DAILY IN THE MORNING Entresto 97-103 mg tablet 1 tab PO BID carvedilol [Coreg] 12.5 mg tablet 12.5 mg PO BID Qty: 180 3RF Rx Instructions: must administer with a meal/food fluticasone propionate [Flonase Allergy Relief] 50 mcg/actuation spray,suspension 1 spray intranasal BID Qty: 16 4RF Rx Instructions: administer into each nostril alprazolam 1 mg tablet 1 mg PO DAILY Qty: 30 5RF Rx Instructions: use for panic attacks alprazolam 1 mg tablet 1 mg PO DAILY Qty: 30 5RF Rx Instructions: use for panic attacks eslicarbazepine 800 mg tablet 800 mg PO DAILY Patient Comments: TAKE 1 & 1 2 (ONE & ONE HALF) TABLETS BY MOUTH ONCE DAILY aspirin 81 MG tablet,delayed release (DR/EC) 81 mg PO DAILY 30 Days 0RF Referrals Follow up/Referrals: Francisco Damon MD [Primary Care Provider] - See instructions Activity Restrictions/Add. Instructions Additional Instructions/Restrictions: You were evaluated in the emergency department today. You have high blood pressure, for which I recommend very close follow-up with primary care. They can monitor your blood pressure and decide if any medication changes need to be made. Return to the emergency department right away for new or concerning symptoms. Clinical Impressions Clinical Impression: Encounter for medical assessment, High blood pressure Instructions Patient Instructions: DI for High Blood Pressure Print Language Print Language: Guatemalan Discharge ED Provider: Jen Cifuentes General Adult HPI <Olegario Matos MD - Last Filed: 09/07/24 15:09> General Chief complaint: Recheck/Abnormal Lab/Rx Stated complaint: wellness check Time Seen by Provider: 09/07/24 14:53 Mode of Arrival: Ambulatory Source of Information: Patient Description of Symptoms (Recalled from ER Triage Doc. 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 PT DENIES SLURRED SPEECH. HR STAFF WANTS PT CHECKED OUT FOR SAFETY. PT REPORTS MULTIPLE STRESSORS AT HOME, DENIES SI/HI. FEELS SAFE AT HOME. History of Present Illness HPI narrative: Patient is a 49-year-old male with past medical history of controlled seizures, heart disorder status post surgical intervention who presents emergency department at the request of for medical evaluation. He was reportedly slurring speech. He denies slurring his speech and states that he has chew in. No trauma. He does have multiple stressors at home but is not suicidal, not homicidal, safe at home. No new medication changes. No weakness, no vision changes, no chest pain, no abdominal pain, no other acute complaints at this time. He is unsure how people noticed whether or not he was supposedly slurring his speech given that he has been taping the room alone. Related Data Home Medications ?Medication ?Instructions ?Recorded ?Confirmed eslicarbazepine 800 mg tablet 800 mg PO DAILY seizures 03/05/20 03/27/24 sacubitril 97 mg-valsartan 103 mg 1 tab PO BID 07/24/22 03/27/24 tablet (Entresto) amlodipine 5 mg tablet 5 mg PO 11/20/23 03/27/24 spironolactone 25 mg tablet 25 mg PO 11/20/23 03/27/24 valsartan 160 mg tablet 160 mg PO 11/20/23 03/27/24 Previous Rx's ?Medication ?Instructions ?Recorded aspirin 81 mg tablet,delayed 81 mg PO DAILY 30 days 03/06/20 release carvedilol 12.5 mg tablet (Coreg) 12.5 mg PO BID #180 tabs 07/24/22 fluticasone propionate 50 1 spray intranasal BID #16 grams 07/24/22 mcg/actuation nasal spray,suspension (Flonase Allergy Relief) alprazolam 1 mg tablet 1 mg PO DAILY #30 tabs 09/27/23 alprazolam 1 mg tablet 1 mg PO DAILY #30 tabs 09/07/24 Allergies Allergy/AdvReac Type Severity Reaction Status Date / Time Penicillins Allergy Severe SWELLING Verified 03/27/24 08:16 [facility] <Olegario Matos MD - Last Filed: 09/07/24 15:09> [facility] Disclaimer: The information contained in this section may have been updated after the patient was seen, as this information can be updated by other users. 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 caffeine: Yes Other Medical History Have you received the Flu Vaccine for this season: No Have you received the Pneumonia Vaccine: No <Olegario Matos MD - Last Filed: 09/07/24 15:09> ROS Obtained: Yes Systems reviewed as appropriate & no additional complaints except as documented Physical Exam <Olegario Matos MD - Last Filed: 09/07/24 15:09> General General appearance: alert and in no apparent distress Head Head exam: atraumatic and normocephalic Eye Eye exam: Present PERRL and EOMI ENT ENT exam: Present mucous membranes moist Neck Neck exam: Present normal inspection Chest Chest inspection: Present normal inspection and symmetric chest wall rise Respiratory Respiratory exam: Present normal lung sounds bilaterally; Absent respiratory distress Cardiovascular Cardiovascular exam: Present regular rate and normal rhythm Abdominal Exam Abdominal exam: Present soft; Absent tenderness Extremities Exam Extremities exam: Present normal inspection Neurological Exam Neurological exam: Present alert, oriented X3 and CN II-XII intact; Absent motor sensory deficit Psychiatric Psychiatric exam: Present normal affect Skin Skin exam: Present warm and dry Medical Decision Making <Olegario Matos MD - Last Filed: 09/07/24 15:09> Medical Records Screening: Per USPSTF and CDC recommendations, given the prevalence of disease in our region, it is our hospital?s policy to screen for HIV and viral Hepatitis for all patients aged 18 and over and those with ongoing risk factors. Prabhu Inquiry Pt receiving controlled substance: No Vital Signs: 09/07/24 14:42 09/07/24 15:00 09/07/24 15:30 Temperature 98.0 F Temperature Source Oral Pulse Rate Pulse Rate [Radial] 63 Respiratory Rate 18 Blood Pressure 199/101 H 161/95 H Blood Pressure [Right Arm] 197/95 H Blood Pressure Mean 133 117 Blood Pressure Mean [Right Arm] 129 Blood Pressure Source [Right Arm] Automatic Cuff Blood Pressure Position [Right Arm] Sitting 02 Sat by Pulse Oximetry 97 Oxygen Delivery Method Room Air 09/07/24 16:31 09/07/24 17:00 09/07/24 17:35 Temperature 98.2 F Temperature Source Oral Pulse Rate 60 57 L 65 Pulse Rate [Radial] Respiratory Rate 18 Blood Pressure 182/94 H 186/99 H 170/88 H Blood Pressure [Right Arm] Blood Pressure Mean 126 135 Blood Pressure Mean [Right Arm] Blood Pressure Source [Right Arm] Blood Pressure Position [Right Arm] 02 Sat by Pulse Oximetry 96 96 Oxygen Delivery Method Room Air Lab Data Lab Results 09/07/24 15:13: WBC 12.1 H, RBC 3.64 L, Hgb 11.1 L, Hct 33.3 L, MCV 91.5, MCH 30.5, MCHC 33.3, RDW 12.4, Plt Count 220, MPV 10.6 H, Neut % (Auto) 61.3, Lymph % (Auto) 19.7, [place] % (Auto) 7.1, Eos % (Auto) 10.8, Baso % (Auto) 0.9, Neut # (Auto) 7.4, Lymph # (Auto) 2.4, [place] # (Auto) 0.9, Eos # (Auto) 1.3 H, Baso # (Auto) 0.1, Sodium 138, Potassium 3.5, Chloride 102, Carbon Dioxide 31 H, Anion Gap 8.5, BUN 11, Creatinine 1.10, Estimated Creat Clear 78, Estimated GFR 71, Est GFR ( Amer) 86, Glucose 136 H, Calcium 9.5, Magnesium 1.6, Total Bilirubin 0.2, AST 24, ALT 16, Alkaline Phosphatase 82, Total Protein 7.2, Albumin 4.7, Globulin 2.5, Albumin/Globulin Ratio 1.9 H, Plasma/Serum Alcohol < 10 09/07/24 15:13 09/07/24 15:13 Orders (Tests/Meds): ORDERS Category Date Time Status CBC w/Auto Diff [Complete Blood Count Auto Diff] Stat Lab 09/07/24 15:13 Completed CMP [Comprehensive Metabolic Panel] Stat Lab 09/07/24 15:13 Completed Ethanol [Ethyl Alcohol] Stat Lab 09/07/24 15:13 Completed MG [Magnesium] Stat Lab 09/07/24 15:13 Completed Medical Decision Narrative: In summary patient is a 49-year-old male past medical history described above who presents emergency department for medical evaluation at the request of HR. Patient is hemodynamically stable nontoxic-appearing upon arrival, afebrile. He has a nonfocal neurologic exam. His seizures are well-controlled and he has no ongoing seizure-like activity and has not had any today. He does not have any slurring of his speech on my exam although he has slight dysphonia due to tobacco products in his mouth. No trauma. No medication changes. Denies ingestions. He is willing to participate in laboratory investigation. Limited workup we conducted with hematologic labs alcohol level, drug screen. These are largely pending at time of transition of care to the oncoming physician, Dr. Cifuentes. <Jen Cifuentes, DO - Last Filed: 09/08/24 00:11> Vital Signs: 09/07/24 14:42 09/07/24 15:00 09/07/24 15:30 Temperature 98.0 F Temperature Source Oral Pulse Rate Pulse Rate [Radial] 63 Respiratory Rate 18 Blood Pressure 199/101 H 161/95 H Blood Pressure [Right Arm] 197/95 H Blood Pressure Mean 133 117 Blood Pressure Mean [Right Arm] 129 Blood Pressure Source [Right Arm] Automatic Cuff Blood Pressure Position [Right Arm] Sitting 02 Sat by Pulse Oximetry 97 Oxygen Delivery Method Room Air 09/07/24 16:31 09/07/24 17:00 09/07/24 17:35 Temperature 98.2 F Temperature Source Oral Pulse Rate 60 57 L 65 Pulse Rate [Radial] Respiratory Rate 18 Blood Pressure 182/94 H 186/99 H 170/88 H Blood Pressure [Right Arm] Blood Pressure Mean 126 135 Blood Pressure Mean [Right Arm] Blood Pressure Source [Right Arm] Blood Pressure Position [Right Arm] 02 Sat by Pulse Oximetry 96 96 Oxygen Delivery Method Room Air Lab Data Lab Results 09/07/24 15:13: WBC 12.1 H, RBC 3.64 L, Hgb 11.1 L, Hct 33.3 L, MCV 91.5, MCH 30.5, MCHC 33.3, RDW 12.4, Plt Count 220, MPV 10.6 H, Neut % (Auto) 61.3, Lymph % (Auto) 19.7, [place] % (Auto) 7.1, Eos % (Auto) 10.8, Baso % (Auto) 0.9, Neut # (Auto) 7.4, Lymph # (Auto) 2.4, [place] # (Auto) 0.9, Eos # (Auto) 1.3 H, Baso # (Auto) 0.1, Sodium 138, Potassium 3.5, Chloride 102, Carbon Dioxide 31 H, Anion Gap 8.5, BUN 11, Creatinine 1.10, Estimated Creat Clear 78, Estimated GFR 71, Est GFR ( Amer) 86, Glucose 136 H, Calcium 9.5, Magnesium 1.6, Total Bilirubin 0.2, AST 24, ALT 16, Alkaline Phosphatase 82, Total Protein 7.2, Albumin 4.7, Globulin 2.5, Albumin/Globulin Ratio 1.9 H, Plasma/Serum Alcohol < 10 Orders (Tests/Meds): ORDERS Category Date Time Status CBC w/Auto Diff [Complete Blood Count Auto Diff] Stat Lab 09/07/24 15:13 Completed CMP [Comprehensive Metabolic Panel] Stat Lab 09/07/24 15:13 Completed Ethanol [Ethyl Alcohol] Stat Lab 09/07/24 15:13 Completed MG [Magnesium] Stat Lab 09/07/24 15:13 Completed ECG Data Tracing #1: I reviewed this ECG and interpreted as documented below: Sinus bradycardia with left bundle branch block. No acute STEMI. ECG initial impression date: 09/07/24 ECG initial impression time: 16:48 Medical Decision Narrative: In summary patient is a 49-year-old male past medical history described above who presents emergency department for medical evaluation at the request of HR. Patient is hemodynamically stable nontoxic-appearing upon arrival, afebrile. He has a nonfocal neurologic exam. His seizures are well-controlled and he has no ongoing seizure-like activity and has not had any today. He does not have any slurring of his speech on my exam although he has slight dysphonia due to tobacco products in his mouth. No trauma. No medication changes. Denies ingestions. He is willing to participate in laboratory investigation. Limited workup we conducted with hematologic labs alcohol level, drug screen. These are largely pending at time of transition of care to the oncoming physician, Dr. Cifuentes. Esau DO: On my assessment the patient, he is sitting upright, neurologically intact, in no acute distress with high blood pressure but no other abnormal vital signs noted on cardiac telemetry. He has no concerns or complaints and denies any sort of substance use. Basic lab evaluation demonstrated mild leukocytosis, very mild anemia. Chemistry is reassuring. Given reassuring workup and exam, I feel that he is appropriate for discharge home. Strict turn precautions given Critical Care <Olegario Matos MD - Last Filed: 09/07/24 15:09> Critical Care Time Critical Care Time: No
--- NOTE | 2024-09-07 15:04 | PC.NURSE ---
LAB NOTIFIED OF URINE AND BLOOD COLLECTION
[2024-09-07 15:25] LABS: Albumin Level 4.7 g/dl (3.5-5.0); Chloride 102 mmol/L (98-107); Potassium 3.5 mmoL/L (3.5-5.1); Sodium 138 mmol/L (136-145)
[2024-09-07 15:27] LABS: Blood Urea Nitrogen 11 mg/dl (9-20); Creatinine Clearance Estimated 78 mL/min (50-200); Estimated Glomerular Filt Rate 71 ml/min (>60); GFR (African American) 86 ML/MIN (>60)
[2024-09-07 15:28] LABS: Alanine Aminotransferase 16 U/L (12-78); Albumin/Globulin Ratio 1.9 (1.1-1.8); Alkaline Phosphatase 82 U/L (38-126); Anion Gap 8.5 mEq/L (5-15); Aspartate Amino Transferase 24 U/L (17-59); Bilirubin,Total 0.2 mg/dl (0.2-1.3); Calcium 9.5 mg/dl (8.4-10.2); Carbon Dioxide 31 mmol/L (22.0-30.0); Globulin 2.5 g/dL (1.3-3.2); Glucose 136 mg/dl (74-100); Magnesium 1.6 mg/dl (1.6-2.3); Total Protein,Serum 7.2 g/dl (6.3-8.2)
[2024-09-07 15:30] VITALS: BP 161/95
[2024-09-07 16:28] LABS: Basophils # 0.1 K/mm3 (0-0.2); Basophils % 0.9 % (0.1-2.0); Eosinophils # 1.3 K/mm3 (0.0-0.4); Eosinophils % 10.8 % (0.1-12.0); Hematocrit 33.3 % (42.0-52.0); Hemoglobin 11.1 g/dL (14.1-18.0); Lymphocytes # 2.4 K/mm3 (0.7-4.5); Lymphocytes % 19.7 % (10-50); Mean Corpuscular HGB Conc 33.3 g/dL (31.8-35.4); Mean Corpuscular Hemoglobin 30.5 pg (27.0-31.2); Mean Corpuscular Volume 91.5 fl (80-94); Mean Platelet Volume 10.6 fl (7.4-10.4); Monocytes # 0.9 K/mm3 (0.1-1.0); Monocytes % 7.1 % (1.7-9.3); Neutrophils # 7.4 K/mm3 (1.8-7.8); Neutrophils % 61.3 % (37.0-80.0); Platelet Count 220 K/mm3 (142-424); Red Blood Count 3.64 M/mm3 (4.60-6.20); Red Cell Distribution Width 12.4 % (11.5-17.5); White Blood Count 12.1 K/mm3 (4.8-10.8)
[2024-09-07 16:31] VITALS: BP 182/94; PULSE 60; O2SAT 96
[2024-09-07 16:42] LABS: Ethyl Alcohol < 10 mg/dl (0-10)
--- NOTE | 2024-09-07 16:42 | ECG_ITS ---
APPROVED REPORT Exam: Resting ECG HR:58 bpm ECG Measurements Heart Rate 58 AXES ND 193 P 164 QRSd 170 QRS 87 QT 462 T 155 QTc 458 Conclusion ECTOPIC ATRIAL BRADYCARDIA LEFT BUNDLE BRANCH BLOCK [120+ ms QRS DURATION, 80+ ms Q/S IN V1/V2, 85+ ms R IN I/aVL/V5/V6] LATERAL MYOCARDIAL INFARCTION , OF INDETERMINATE AGE [40+ ms Q WAVE AND/OR ST/T ABNORMALITY IN I/aVL/V5/V6] ABNORMAL ECG UNCONFIRMED REPORT Electronically signed by : HAKAN WAGNER, 09/07/2024 23:12:02
[2024-09-07 17:00] VITALS: BP 186/99; PULSE 57; O2SAT 96
[2024-09-07 17:35] VITALS: BP 170/88; PULSE 65; RESP 18; TEMP 36.8; O2SAT 98
== END 2024-09-07 17:35 | disposition home or self-care (01) ==
PROVIDERS: Emergency Medicine; Emergency Provider Emergency Medicine; PCP Family Medicine
DX: Z00.8 Encounter for other general examination (principal); R47.81 Slurred speech; I10 Essential (primary) hypertension
CPT/HCPCS: 36415; 80053; 80320; 83735; 85025; 93005; 99283; G0480